=== PATIENT | female | born 1980 | race Caucasian/White ===

== ENCOUNTER 2018-03-14 10:27 | Emergency (ER) | payer BC ==
[2018-03-14 10:33] VITALS: BP 118/77
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
== END 2018-03-14 12:37 | disposition home or self-care (01) ==
LOC: UCEAST 10:27
DX: S06.0X1A Concussion with loss of consciousness of 30 minutes or less, initial encounter (principal); S80.11XA Contusion of right lower leg, initial encounter; W10.9XXA Fall (on) (from) unspecified stairs and steps, initial encounter; Y93.9 Activity, unspecified; Y92.008 Other place in unspecified non-institutional (private) residence as the place of occurrence of the external cause; R55 Syncope and collapse; M54.2 Cervicalgia; R11.0 Nausea; Z87.891 Personal history of nicotine dependence
CPT/HCPCS: 70450; 99212; G0463

== ENCOUNTER 2018-08-15 13:18 | Emergency (ER) | payer BC ==
[2018-08-15 13:29] VITALS: BP 116/71
--- NOTE | 2018-08-15 13:36 | UC ---
Head Injury HPI - HPI Summary HPI Summary: 38 yo female presents with head injury. She tells me that she had a concussion about 5 months ago from falling on her basement steps. Today she was walking out to her car and slipped on the driveway and hit the back of her head on the driveway. No LOC. She was able to get to her feet and continued about her day. 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 Now she is concerned she may have a concussion. Has not taken anything OTC for her discomfort. Since stopping work her headache has improved. Denies dizziness, weakness, vision changes, SOB, chest pain, numbness, or tingling. - History Of Current Complaint Chief Complaint: UCHeadInjury Stated Complaint: headache Time Seen by Provider: 08/15/18 13:36 Hx Obtained From: Patient Hx Last Menstrual Period: 07/23/18 Onset/Duration: Sudden Onset Severity Currently: Moderate Severity Initially: Moderate Pain Intensity: 7 Pain Scale Used: 0-10 Numeric - Allergies/Home Medications Allergies/Adverse Reactions: Allergies Allergy/AdvReac Type Severity Reaction Status Date / Time No Known Allergies Allergy Verified 08/15/18 13:29 PMH/Surg Hx/FS Hx/Imm Hx - Additional Past Medical History Additional PMH: ADHD - Surgical History Surgical History: Yes Surgery Procedure, Year, and Place: CARDIAC ABLATION 2009 - Family History Known Family History: Positive: Hypertension - Social History Occupation: Employed Full-time Lives: With Family Alcohol Use: Rare Substance Use Type: None Smoking Status (MU): Former Smoker When Did the Patient Quit Smoking/Using Tobacco: 12 yrs ago Review of Systems All Other Systems Reviewed And Are Negative: Yes Constitutional: Positive: Negative Skin: Positive: Negative Respiratory: Positive: Negative Cardiovascular: Positive: Negative Gastrointestinal: Positive: Negative Motor: Positive: Negative Neurovascular: Positive: Negative Musculoskeletal: Positive: Negative Neurological: Positive: Headache Psychological: Positive: Negative Physical Exam - Summary Physical Exam Summary: GENERAL: NAD. WDWN. No pain distress. SKIN: No rashes, sores, ulcers, masses, lesions. HEENT: Head: AT/NC. No raccoon eyes or battles sign. No hematoma. Eyes: PERRLA. EOM intact. Ears: Hearing grossly normal. TMs intact, no bulging, erythema, or edema. No hemotympanum NECK: Supple. Nontender. FROM CHEST: CTAB. No r/r/w. No accessory muscle use. Breathing comfortably and in no distress. CV: RRR. Without m/r/g. Pulses intact. Brisk cap refill. MSK: FROM in B/L UEs and LEs with symmetric strength. NEURO: A&Ox3. 3 word recall, remote, recent memory, ability to follow 2-step directions, and attention intact. CN: II: Peripheral fraser intact. Vision normal. III, IV, : EOMI. No nystagmus. PERRLA. V: Sensations intact and symmetric. Opens mouth and clenches teeth. VII: No facial asymmetry. Forehead wrinkles. Grins, shuts eyes, frowns, puffs cheeks. VIII: Hearing intact to finger rub. IX, X: Swallows and coughs. Uvula midline. XI: Shrugs shoulders. Turns head against resistance. XII: No tongue deviation [id number] are intact. Gait with normal base. Romberg: maintains balance, no pronator drift. Normal speech. No facial drooping. PSYCH: Age appropriate behavior. Triage Information Reviewed: Yes Vital Signs: Initial Vital Signs Temp 98.1 F 08/15/18 13:25 Pulse 80 08/15/18 13:25 Resp 18 08/15/18 13:25 BP 116/71 08/15/18 13:25 Pulse Ox 99 08/15/18 13:25 Vital Signs Reviewed: Yes Head Injury Course/Dx - Course Course Of Treatment: Exam WNL and headache has improved after stopping work today. Discussed the findings and low-impact injury with pt - low risk for intracranial pathology and she elected to not have CT head performed today. Suspect head injury vs concussion. Advised to refrain from activities that worsen her symptoms and f/u with [facility] or her PCP for further evaluation. - Differential Dx/Diagnosis Provider Diagnosis: Head injury Discharge - Sign-Out/Discharge Documenting (check all that apply): Patient Departure All imaging exams completed and their final reports reviewed: No Studies - Discharge Plan Condition: Stable Disposition: HOME Patient Education Materials: Concussion (ED), Head Injury (ED) Forms: *Work Release Referrals: Vijay aVsquez MD [Primary Care Provider] - [facility] [Provider Group] - If Needed Additional Instructions: If you develop a fever, shortness of breath, chest pain, new or worsening symptoms - please call your PCP or go to the ED. Your exam was normal today. If you develop a severe headache, vision changes, weakness, nausea, vomiting, or difficulty concentrating - please go to the ER. - Billing Disposition and Condition Condition: STABLE Disposition: Home
== END 2018-08-15 13:52 | disposition home or self-care (01) ==
LOC: UCEAST 13:18
DX: S09.90XA Unspecified injury of head, initial encounter (principal); F90.9 Attention-deficit hyperactivity disorder, unspecified type; Z87.891 Personal history of nicotine dependence; W01.198A Fall on same level from slipping, tripping and stumbling with subsequent striking against other object, initial encounter; Y93.01 Activity, walking, marching and hiking; Y92.9 Unspecified place or not applicable
CPT/HCPCS: 99211; G0463